=== PATIENT | male | born 1960 | race American Indian/Alaskan Native ===

== ENCOUNTER 2018-06-02 10:55 | Outpatient (CLI) | payer BC ==
--- NOTE | 2018-06-02 11:25 | XRay Report ---
ROUTINE CHEST, TWO VIEWS: Cough. PA and lateral views demonstrate the heart and mediastinal contour to be of normal size and shape. The lungs are clear and fully expanded and the soft tissues and bony structures are normal. IMPRESSION: Normal study.
== END 2018-06-02 10:56 | disposition home or self-care (01) ==
LOC: SPVIMAG 10:55
DX: R05 Cough (principal)
CPT/HCPCS: 71046